=== PATIENT | male | born 1970 | race Caucasian/White ===

== ENCOUNTER 2016-12-23 11:48 | Emergency (ER) | payer MEDICAID ==
[2016-12-23 12:07] VITALS: BP 119/83; PULSE 64; RESP 16; TEMP 98.5
[2016-12-23] MEDS ORDERED: methylPREDNISolone SOD SUCCI 125 MG/2 ML VIAL IM ONE (12:30)
--- NOTE | 2016-12-23 12:34 | ED ---
Back Pain HPI - General Chief Complaint: Back Pain/Injury Stated Complaint: BACK PAIN, POSS HERNIATION Time Seen by Provider: 12/23/16 12:08 Source: patient Limitations: no limitations - History of Present Illness Initial Comments: 46-year-old male patient presents to emergency department today for evaluation of left lower back pain with radiation down the left leg. Patient states that this started Saturday morning upon wakening. Patient states that with movement or ambulation he has a dull pain down his buttock and to the back of his knee. He states that he has been diagnosed with herniated disc in the past however was able to treat with injections and other natural therapies. Patient denies any falls or injury causing the pain. He denies any numbness or tingling in his lower extremities, denies any loss of bowel or bladder control, denies any saddle anesthesia. Denies any rash, fever, chills, headache, chest pain, shortness of breath, abdominal pain, nausea, vomiting, hematuria, dysuria, urinary urgency or urinary frequency. Denies any constipation, diarrhea, or dark, bloody, or black stools. She states he was seen as a patient at [facility] on Saturday, given an x-ray which states told him was normal, and a prescription for Ultram. Patient states that he presented today in order to try to figure out what is causing the pain and is wondering if he can have an MRI. - Related Data Home Medications Medication Instructions Recorded Confirmed Omeprazole 40 mg PO DAILY 11/16/13 11/16/13 traMADol HCL [Ultram] 50 mg PO TID 12/23/16 12/23/16 Previous Rx's Medication Instructions Recorded Cyclobenzaprine [Flexeril] 10 mg PO TID #15 tab 12/23/16 predniSONE 60 mg PO DAILY #5 tab 12/23/16 Allergies Allergy/AdvReac Type Severity Reaction Status Date / Time No Known Allergies Allergy Verified 12/23/16 12:01 Review of Systems ROS Statement: Those systems with pertinent positive or pertinent negative responses have been documented in the HPI. ROS Other: All systems not noted in ROS Statement are negative. Past Medical History Past Medical History: GERD/Reflux Additional Past Medical History / Comment(s): meniere's disease, seasonal allergies, hiatal hernia History of Any Multi-Drug Resistant Organisms: None Reported Past Surgical History: Ear Surgery Additional Past Surgical History / Comment(s): rt ear for meniere's disease, EGD Past Anesthesia/Blood Transfusion Reactions: Motion Sickness Past Psychological History: No Psychological Hx Reported Smoking Status: Never smoker Past Alcohol Use History: Rare Past Drug Use History: None Reported - Past Family History Mother Family Medical History: Cancer General Exam Limitations: no limitations General appearance: alert, in no apparent distress Head exam: Present: atraumatic, normocephalic, normal inspection Eye exam: Present: normal appearance, PERRL, EOMI. Absent: scleral icterus, conjunctival injection, periorbital swelling ENT exam: Present: normal exam, normal oropharynx, mucous membranes moist Neck exam: Present: normal inspection, full ROM. Absent: tenderness, meningismus, lymphadenopathy Respiratory exam: Present: normal lung sounds bilaterally. Absent: respiratory distress, wheezes, rales, rhonchi, stridor Cardiovascular Exam: Present: regular rate, normal rhythm, normal heart sounds. Absent: systolic murmur, diastolic murmur, rubs, gallop, clicks GI/Abdominal exam: Present: soft, normal bowel sounds. Absent: distended, tenderness, guarding, rebound, rigid Extremities exam: Present: normal inspection, full ROM, normal capillary refill. Absent: tenderness, pedal edema, joint swelling, calf tenderness Back exam: Present: normal inspection, other (Patient did refuse to have straight leg test performed. Patient states this test was performed by [facility] on Saturday and cause significant pain with radiation down the left leg.). Absent: CVA tenderness (R), CVA tenderness (L), vertebral tenderness, rash noted Neurological exam: Present: alert, oriented X3, CN II-XII intact Psychiatric exam: Present: normal affect, normal mood Skin exam: Present: warm, dry, intact, normal color. Absent: rash Course Vital Signs 12/23/16 12:03 Temperature 98.5 F Pulse Rate 64 Respiratory 16 Rate Blood Pressure 119/83 O2 Sat by Pulse 97 Oximetry Medical Decision Making - Medical Decision Making 46-year-old male patient presented to emergency department today for evaluation of lower back pain with radiation down the left leg. Patient did request MRI however did explain to the patient that these are not routinely performed in the emergency department and that follow-up and referral is required should he deem this test necessary. Physical exam was unremarkable, patient did refuse to have straight leg test performed however did report that it was positive at [facility] on Saturday. Patient was given Ultram at that visit, today he will be given a prescription for Flexeril and a course of prednisone. He will also be given instructions to follow-up with crop pest control specialist should his symptoms continue. Patient instructed to follow up his primary care physician in one to 2 days for recheck. Patient instructed to return immediately for any new, worsening, or concerning symptoms. Patient verbalized understanding and agreed with this plan. Disposition Clinical Impression: Sciatica Disposition: HOME SELF-CARE Condition: Good Instructions: Sciatica (ED), Acute Low Back Pain (ED) Additional Instructions: Continue low back stretching. Complete steroid prescription in full. Take Flexeril as needed for muscle relaxer. Follow-up with primary care physician in one to 2 days for recheck. Return immediately for any new, worsening, or concerning symptoms. Prescriptions: Cyclobenzaprine [Flexeril] 10 mg PO TID #15 tab predniSONE 60 mg PO DAILY #5 tab Referrals: Brien Davidson DO [Primary Care Provider] - 1-2 days Moncho Cox DO [Doctor of Osteopathic Medicine] - 1-2 days Time of Disposition: 12:34
== END 2016-12-23 13:01 | disposition home or self-care (01) ==
LOC: EC 11:48
DX: M54.30 Sciatica, unspecified side (principal); K21.9 Gastro-esophageal reflux disease without esophagitis; Z79.899 Other long term (current) drug therapy
CPT/HCPCS: 99283; 96372; J2930

== ENCOUNTER → 2019-04-14 | Outpatient (CLI) | payer MEDICAID ==
[2019-04-14 16:36] LABS: Basophils # (A) 0.1 k/uL (0-0.2); Basophils % (A) 1 %; Eosinophils # (A) 0.2 k/uL (0-0.7); Eosinophils % (A) 3 %; HCT 46.9 % (39.0-53.0); HGB 15.7 gm/dL (13.0-17.5); Lymphocytes # (A) 2.1 k/uL (1.0-4.8); Lymphocytes % (A) 31 %; MCHC 33.5 g/dL (31.0-37.0); MCV 86.6 fL (80.0-100.0); Mean Platelet Volume 7.1; Monocytes # (A) 0.5 k/uL (0-1.0); Monocytes % (A) 8 %; Neutrophils # (A) 3.7 k/uL (1.3-7.7); Neutrophils % (A) 56 %; Platelet Count 202 k/uL (150-450); RBC 5.41 m/uL (4.30-5.90); RDW 12.9 % (11.5-15.5); WBC 6.7 k/uL (3.8-10.6)
[2019-04-14 18:28] LABS: Erythrocyte Sedimentation Rate 2 mm/hr (0-15)
[2019-04-15 01:18] LABS: ALT 37 U/L (10-49); AST 34 U/L (14-35); African American GFR (CKD) 92.2 (60.0-200.0); Albumin/Globulin Ratio 2.42 (1.60-3.17); Alkaline Phosphatase 53 U/L (41-126); BUN/Creat Ratio 15.45 Ratio (12.00-20.00); C Reactive Protein <0.4 mg/dL (0.0-0.8); Calcium 9.4 mg/dL (8.7-10.3); Carbon Dioxide 29.8 mmol/L (21.6-31.8); Chloride 106 mmol/L (96-109); Globulin 1.9 g/dL (1.6-3.3); Glucose 84 mg/dL (70-110); Non-African American GFR(CKD) 79.5 (60.0-200.0); Potassium 4.6 mmol/L (3.5-5.5); Sodium 143 mmol/L (135-145); Total Bilirubin 0.8 mg/dL (0.3-1.2); Total Protein 6.5 g/dL (6.2-8.2)
== END | disposition home or self-care (01) ==
LOC: LABWHC1 15:35
PROVIDERS: ATTEND Nurse Practitioner
DX: R10.9 Unspecified abdominal pain (principal)
CPT/HCPCS: 36415; 80053; 85025; 85652; 86140

== ENCOUNTER 2019-04-21 06:40 | Day surgery (SDC) | payer MEDICAID ==
[2019-04-17 15:19] VITALS: BMI 27.1
[~2019-04-21 06:40] MED LIST: LACTATED RINGERS 1,000 ML IV SCH; LIDOCAINE 1% 20 ML VIAL (10MG/ML) FOR IV START INTRADERMA PRN
[2019-04-21 07:10] VITALS: TEMP 98.4
[2019-04-21] MEDS ORDERED: LACTATED RINGERS 1,000 ML IV ONE ×3 (07:12)
[2019-04-21] MEDS ORDERED: PROPOFOL 10 MG/ML 20 ML VIAL IV ONE (07:30)
[2019-04-21] MEDS ORDERED: LIDOCAINE 1% INJ 10MG/ML (20 ML MDV) ONE (07:30)
[2019-04-21 08:04] VITALS: RESP 16
--- NOTE | 2019-04-21 08:05 | P.PCN ---
Date of Procedure: 04/21/19 Description of Procedure: BRIEF HISTORY: The patient is a 48-year-old male presents for outpatient colonoscopy. Patient reports abdominal pain and alternating diarrhea and constipation. No prior colonoscopy reported. No family history of colon cancer. PROCEDURE PERFORMED: Colonoscopy with biopsy. PREOPERATIVE DIAGNOSIS: Abdominal pain, change in bowel habits, no prior colonoscopy. ESTIMATED BLOOD LOSS: Minimal. IV sedation per Anesthesia. PROCEDURE: After informed consent was obtained, the patient, was brought into the endoscopy unit. IV sedation was administered by Anesthesia under continuous monitoring. Digital rectal examination was normal. Initially the Olympus CF-190 flexible video colonoscope was then inserted in the rectum, gradually advanced into the cecum without any difficulty. Careful examination was performed as the scope was gradually being withdrawn. Ileocecal valve and the appendiceal orifice were visualized and appeared normal. The terminal ileum was intubated and appeared normal with biopsies taken. Prep was excellent. Mucosa of the cecum, ascending colon, transverse colon, descending colon, sigmoid colon, and rectum appeared normal, with biopsies of the right and left colon taken given reports of altered bowel function. Retroflexion was performed in the rectum and no lesions were seen, mild internal hemorrhoids noted. The patient tolerated the procedure well. IMPRESSION: Normal-appearing colon from rectum to cecum, and normal-appearing terminal ileum with random biopsies taken of the terminal ileum, right and left colon. RECOMMENDATIONS: Findings of this examination were discussed with the patient and his family. Okay to resume diet. Okay to resume medication. Await pathology from biopsies. Would recommend repeat colonoscopy in 10 years for screening or sooner if further signs or symptoms which warrant further evaluation develop.
[2019-04-21 08:18] VITALS: BP 94/61; PULSE 58
== END 2019-04-21 08:39 | disposition home or self-care (01) ==
LOC: ORWHC2ENDO 06:40
PROVIDERS: ATTEND Internal Medicine
DX: K59.00 Constipation, unspecified (principal); R19.7 Diarrhea, unspecified; K64.8 Other hemorrhoids; E07.9 Disorder of thyroid, unspecified; Z79.890 Hormone replacement therapy
CPT/HCPCS: 88305; 45380; J2001; J2704